=== PATIENT | male | born 1990 | race Caucasian/White ===

== ENCOUNTER 2022-10-13 20:27 | Outpatient (REF) | payer BC, SELFPAY | END 2022-10-13 20:28 | disposition home or self-care (01) | LOC: LBN 20:27 | PROVIDERS: Visit Provider Nurse Practitioner Family | DX: L98.8 Other specified disorders of the skin and subcutaneous tissue (principal); L08.89 Other specified local infections of the skin and subcutaneous tissue | CPT/HCPCS: 87070; 87205 ==

== ENCOUNTER 2024-12-19 00:18 | Outpatient (CLI) | payer OTHER, SELFPAY ==
[2024-12-19 15:40] LABS: Hemoglobin A1C 5.1 % (<5.7)
[2024-12-19 16:48] LABS: ALT 25 U/L (10-49); AST 26 U/L (<34); Albumin 4.6 g/dL (3.4-5.0); Alkaline Phosphatase 66 U/L (46-116); Anion Gap 9.5 mmol/L (3-11); BUN 15 mg/dL (9-23); Bilirubin, Total 0.80 mg/dL (0.2-1.2); CO2 27.5 mmol/L (20.0-31.0); Calcium 10.0 mg/dL (8.3-10.6); Chloride 105 mmol/L (98-107); Cholesterol 213 mg/dL (<200); Glucose 74 mg/dL (74-106); HDL Cholesterol 61 mg/dL (>40); Potassium 3.9 mmol/L (3.5-5.1); Sodium 142 mmol/L (136-145); Total Protein 7.8 g/dL (5.7-8.2)
== END 2024-12-19 00:19 | disposition home or self-care (01) ==
LOC: LOS 00:18
PROVIDERS: PCP Nurse Practitioner Family; Visit Provider Nurse Practitioner Family
DX: Z13.1 Encounter for screening for diabetes mellitus (principal); Z00.00 Encounter for general adult medical examination without abnormal findings; Z13.220 Encounter for screening for lipoid disorders
CPT/HCPCS: 36415; 80053; 80061; 83036